=== PATIENT | female | born 1960 ===

== ENCOUNTER 2020-04-10 10:18 | Outpatient (CLI) | payer BC ==
--- NOTE | 2020-04-10 11:22 | ULT ---
CAROTID DOPPLER ULTRASOUND: Date: 04/10/2020 HISTORY: Cerebrovascular accident. COMPARISON: None. TECHNIQUE: Real-time Last scale, color Doppler, and spectral analysis of the extracranial carotid and vertebral arteries was performed. FINDINGS: No significant calcific plaque appreciated. Antegrade flow to both vertebral arteries. There are no elevated peak systolic velocities within the internal carotid arteries. IMPRESSION: No hemodynamically significant stenosis. POS: [facility] [place]
== END 2020-04-10 10:19 | disposition home or self-care (01) ==
LOC: SCSULT 10:18
PROVIDERS: ATTEND Nurse Practitioner Acute Care
DX: I63.9 Cerebral infarction, unspecified (principal)
CPT/HCPCS: 93880